=== PATIENT | female | born 1950 | race Caucasian/White ===

== ENCOUNTER 2021-04-20 11:05 | Outpatient (CLI) | payer MEDICARE, BC | END 2021-04-20 11:06 | disposition home or self-care (01) | LOC: BICMAMMO 11:05 | PROVIDERS: ATTEND Physician Assistant Medical | DX: Z12.31 Encounter for screening mammogram for malignant neoplasm of breast (principal); Z80.3 Family history of malignant neoplasm of breast; Z85.3 Personal history of malignant neoplasm of breast; Z98.890 Other specified postprocedural states | CPT/HCPCS: 77063; 77067 ==

== ENCOUNTER 2021-04-22 11:48 | Outpatient (CLI) | payer MEDICARE, BC | END 2021-04-22 11:49 | disposition home or self-care (01) | LOC: BICULT 11:48 | PROVIDERS: ATTEND Physician Assistant Medical | DX: G45.9 Transient cerebral ischemic attack, unspecified (principal); R20.0 Anesthesia of skin; R29.898 Other symptoms and signs involving the musculoskeletal system | CPT/HCPCS: 70450; 93880 ==

== ENCOUNTER 2022-08-16 11:36 | Outpatient (CLI) | payer MEDICARE, BC | END 2022-08-16 11:37 | disposition home or self-care (01) | LOC: BICMAMMO 11:36 | PROVIDERS: ATTEND Nurse Practitioner Family | DX: Z12.31 Encounter for screening mammogram for malignant neoplasm of breast (principal); Z80.3 Family history of malignant neoplasm of breast; Z85.3 Personal history of malignant neoplasm of breast; Z98.890 Other specified postprocedural states | CPT/HCPCS: 77063; 77067 ==

== ENCOUNTER 2024-04-10 12:57 | Outpatient (CLI) | payer MEDICARE | END 2024-04-10 12:58 | disposition home or self-care (01) | LOC: ULT 12:57 | PROVIDERS: ATTEND Nurse Practitioner Family | DX: M79.605 Pain in left leg (principal); R32 Unspecified urinary incontinence | CPT/HCPCS: 76856; 93923 ==

== ENCOUNTER 2024-05-02 09:26 | Outpatient (CLI) | payer MEDICARE | END 2024-05-02 09:27 | disposition home or self-care (01) | LOC: BICMAMMO 09:26 | PROVIDERS: ATTEND Nurse Practitioner Family | DX: Z12.31 Encounter for screening mammogram for malignant neoplasm of breast (principal); Z80.3 Family history of malignant neoplasm of breast; Z85.3 Personal history of malignant neoplasm of breast; Z98.890 Other specified postprocedural states | CPT/HCPCS: 77063; 77067 ==

== ENCOUNTER 2024-10-10 08:01 | Outpatient (CLI) | payer MEDICARE | END 2024-10-10 08:02 | disposition home or self-care (01) | LOC: BICMAMMO 08:01 | PROVIDERS: ATTEND Nurse Practitioner Family | DX: Z13.820 Encounter for screening for osteoporosis (principal); Z78.0 Asymptomatic menopausal state; M85.89 Other specified disorders of bone density and structure, multiple sites | CPT/HCPCS: 77080 ==

== ENCOUNTER 2024-11-07 08:33 | Outpatient (CLI) | payer MEDICARE | END 2024-11-07 08:34 | disposition home or self-care (01) | LOC: BICULT 08:33 | PROVIDERS: ATTEND Nurse Practitioner Family | DX: R74.8 Abnormal levels of other serum enzymes (principal); R93.2 Abnormal findings on diagnostic imaging of liver and biliary tract; Z90.49 Acquired absence of other specified parts of digestive tract | CPT/HCPCS: 76705 ==

== ENCOUNTER 2024-11-21 08:01 | Outpatient (CLI) | payer MEDICARE ==
[2024-11-21] MEDS ORDERED: Magnevist 469MG/ML 20 ML VIAL ONE (13:04)
== END 2024-11-21 08:02 | disposition home or self-care (01) ==
LOC: MRI 08:01
PROVIDERS: ATTEND Nurse Practitioner Family
DX: R93.89 Abnormal findings on diagnostic imaging of other specified body structures (principal); K44.9 Diaphragmatic hernia without obstruction or gangrene; K86.2 Cyst of pancreas
CPT/HCPCS: 36415; 74183; 82565